=== PATIENT | male | born 1990 | race Caucasian/White ===

== ENCOUNTER 2022-03-20 10:47 | Emergency (ER) | payer OTHER, SELFPAY ==
[2022-03-20 11:06] VITALS: BP 134/88; PULSE 92; RESP 22; TEMP 36.6; O2SAT 100; BMI 24.3
--- NOTE | 2022-03-20 11:21 | ED_ITS ---
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 He was walking yesterday with his family and developed significant knee pain bilaterally also do developed wrist pain bilaterally and some elbow tenderness. He has had inability to really bear weight due to significant pain. He has had no history of gout. No history of reactions to medications in the past other than penicillin. Patient has no shortness of breath no breathing difficulty no tongue swelling or edema, no history of significant allergic reaction. No new medications or exposures other than the oral prednisone. He has noted stood noticed no redness or swelling of his knees wrists or elbows. Related Data Home Medications Medication Instructions Recorded Confirmed dextroamphetamine-amphetamine 15 15 mg PO DAILY 03/20/22 03/20/22 mg tablet dextroamphetamine-amphetamine ER 30 mg PO DAILY 03/20/22 03/20/22 30 mg 24hr capsule,extend release prednisolone acetate 1 % eye 1 drp ophthalmic (eye) 03/20/22 drops,suspension prednisone 10 mg tablet 80 mg PO DAILY 03/20/22 03/20/22 valacyclovir 1 gram tablet 1,000 mg PO TID 03/20/22 03/20/22 Allergies Allergy/AdvReac Type Severity Reaction Status Date / Time Penicillins Allergy Verified 03/20/22 11:10 Review of Systems Status of ROS: Reports: 10 or more systems reviewed and unremarkable except as noted in History and below Exam Narrative: Exam Narrative: Objective: Patient's vital signs are unremarkable He is in moderate discomfort due to disc pain in his knees wrists elbow but his knees the main component. HEENT unremarkable pulse regular abdomen benign soft lower extremities show bilateral knees are tender to palpation but there is no warmth erythema or swelling. Discomfort is diffuse No lower extremity swelling good peripheral CMS, neurologic appears nonfocal. No skin rashes noted. No swelling of his wrists or elbows Const: Vital Signs, click to edit/add: Vital Signs - 24 hr 03/20/22 11:06 Temperature 97.9 F Pulse Rate [Pulse Oximeter] 92 Respiratory Rate 22 Blood Pressure [Le ft Upper Arm] 134/88 Pulse Oximetry 100 Oxygen Delivery Me thod Room Air Course Vital Signs Vital signs: Initial Vital Signs Temperature 97.9 F 03/20/22 11:06 Temperature Source Temporal Artery Scan 03/20/22 11:06 Pulse Rate 92 03/20/22 11:06 Respiratory Rate 22 03/20/22 11:06 Blood Pressure 134/88 03/20/22 11:06 Blood Pressure Mean 103 03/20/22 11:06 Blood Pressure Position Sitting 03/20/22 11:06 Pulse Oximetry 100 03/20/22 11:06 Oxygen Delivery Method 03/20/22 11:06 Vital Signs Temperature 97.9 F 03/20/22 11:06 Pulse Rate 92 03/20/22 11:06 Respiratory Rate 22 03/20/22 11:06 Blood Pressure 134/88 03/20/22 11:06 Pulse Oximetry 100 03/20/22 11:06 Oxygen Delivery Method 03/20/22 11:06 Temperature 97.9 F 03/20/22 11:06 Pulse Rate 92 03/20/22 11:06 Respiratory Rate 22 03/20/22 11:06 Blood Pressure 134/88 03/20/22 11:06 Pulse Oximetry 100 03/20/22 11:06 Oxygen Delivery Method 03/20/22 11:06 Medical Decision Making MDM Narrative Medical decision making narrative: Patient has what appears to be almost a diffuse synovitis type issue. He would be unusual to have a serum sickness type illness with prednisone. He reports he has not been on new medication. Will discuss this further with him. At this point I think given his diff significant discomfort will give him IV fluid, IV Dilaudid, IV Toradol, check laboratory studies, disposition pending findings Patient feels markedly better after the Dilaudid and Ativan. And IV fluid. The am able to flex extend his knees, there is no synovitis, no inflammation, no redness or warmth or swelling of the knees. I think at this point given his labs look reassuring including a negative CRP neck CBC just shows a white count that is mildly elevated likely due to his chronic prednisone use for uveitis, I would recommend he use some Sodus continue the prednisone as prescribed , and crutch walking weight-bearing as tolerated. Recommend icing to the knees as well. Follow up with regular doctor next 2-3 days Lab Data Labs: Lab Results 03/20/22 03/20/22 03/20/22 Range/Units 11:30 11:30 11:30 WBC 12.54 H (4.50-11.00) K/uL RBC 4.63 (4.30-5.90) m/uL Hgb 15.3 (13.5-17.5) gm/dL Hct 44.2 (37.0-53.0) % MCV 96 (80-100) fL MCH 33 (26-34) pg MCHC 35 (32-36) gm/dL RDW Coeff of Carmella 13.6 (11.5-15.5) % Plt Count 290 (140-440) K/uL Neut % (Auto) 57.2 (42.0-72.0) % Lymph % (Auto) 26.5 (20-44) % [place] % (Auto) 7.9 (0.0-11.0) % Eos % (Auto) 1.1 (0.0-7.0) % Baso % (Auto) 0.1 (0.0-3.0) % Neut # (Auto) 7.20 H (1.7-7.0) K/uL Lymph # (Auto) 3.30 H (0.90-2.90) K/uL [place] # (Auto) 1.00 H (0.00-0.90) K/UL Eos # (Auto) 0.10 (0.00-0.50) K/uL Baso # (Auto) 0.00 (0.00-0.30) K/uL Diff Slide Review Acceptable Review (Acceptable) Sodium 136 (135-149) mmol/L Potassium 3.9 (3.6-5.1) mmol/L Chloride 100 (96-114) mmol/L Carbon Dioxide 28 (20-32) mmol/L BUN 22 (5-24) mg/dL Creatinine 0.8 (0.5-1.5) mg/dL Estimated Creat Clear 131.81 Estimated GFR 123 ml/min Glucose 85 (60-115) mg/dL Calcium 8.4 (8.4-10.6) mg/dL Total Bilirubin 0.5 (0.1-1.5) mg/dL Direct Bilirubin 0.3 (0.0-0.5) mg/dL AST 81 H (12-35) U/L ALT 72 H (4-50) U/L Alkaline Phosphatase 99 (40-150) U/L C-Reactive Protein < 0.5 L (0.5-1.0) mg/dL Total Protein 6.5 (6.0-8.3) g/dL Albumin 4.0 (3.3-5.0) g/dL SARS-CoV-2 (PCR) Negative SARS-CoV-2 (Negative) Influenza Type A (PCR) Negative PCR FLU A (Negative) Influenza Type B (PCR) Negative PCR FLU B (Negative) RSV (PCR) Negative PCR RSV (Negative) Discharge Plan Discharge Clinical Impression: Diffuse arthralgia Patient Disposition: Home w/ Parent or Adult Condition: Improved Additional Instructions: Light activity, crutch walking toe touching is acceptable as tolerated, icing to the knees as needed, continue some ibuprofen at home, will also prescribe some pain medication, he has been on prednisone for 3 weeks and needs to continue that, discussed with regular doctor in the next couple of days, unlikely the prednisone is related to this issue given that he has been on it for 3 weeks and taken it before. Will prescribe Sodus from the in steam add Activity Level: Use Crutches Discharge Diet: Regular Prescriptions: No Action dextroamphetamine-amphetamine 15 mg tablet 15 mg PO DAILY dextroamphetamine-amphetamine 30 mg capsule,extended release 24hr 30 mg PO DAILY prednisone 10 mg tablet 80 mg PO DAILY Label Comments: TAKE 8 TABLETS BY MOUTH DAILY valacyclovir 1 gram tablet 1,000 mg PO TID Label Comments: TAKE ONE TABLET BY MOUTH THREE TIMES DAILY prednisolone acetate 1 % drops,suspension 1 drp ophthalmic (eye) Label Comments: INSTILL ONE DROP TO RIGHT EYE SIX TIMES DAILY Stand Alone Forms: MyHealth Info Instructions
[2022-03-20] MEDS: HYDROmorphone 0.5 mg/0.5 ml inj IVP (11:43)
[2022-03-20] MEDS: 0.9 % SODIUM CHLORIDE 1000 ml 1,000 ML 6000 ML IV (11:43)
[2022-03-20] MEDS: KETOROLAC 30 MG/ML inj IVP (11:43)
[2022-03-20 11:54] LABS: Basophils Percent Auto 0.1 % (0.0-3.0); Eosinophils Percent Auto 1.1 % (0.0-7.0); Hematocrit 44.2 % (37.0-53.0); Hemoglobin* 15.3 gm/dL (13.5-17.5); Immature Granulocytes Pct Auto 7.2 %; Lymphocytes Percent Auto 26.5 % (20-44); Mean Corpuscular HGB Conc 35 gm/dL (32-36); Mean Corpuscular Hemoglobin 33 pg (26-34); Mean Corpuscular Volume 96 fL (80-100); Monocytes Percent Auto 7.9 % (0.0-11.0); Neutrophils Percent Auto 57.2 % (42.0-72.0); Platelet Count* 290 K/uL (140-440); RDW Coefficient of Variation % 13.6 % (11.5-15.5); Red Blood Count 4.63 m/uL (4.30-5.90); White Blood Count* 12.54 K/uL (4.50-11.00)
[2022-03-20 11:56] LABS: Slide Review Reflex Yes
[2022-03-20] MEDS: LORazepam 2 MG/ML inj 0.5 MG IVP (12:11)
[2022-03-20 12:26] LABS: Chloride* 100 mmol/L (96-114)
[2022-03-20 12:27] LABS: Potassium* 3.9 mmol/L (3.6-5.1); Sodium* 136 mmol/L (135-149)
[2022-03-20 12:29] LABS: Creatinine* 0.8 mg/dL (0.5-1.5); Est. Creatinine Clearance* 131.81; Estimated Glomerular Filt Rate 123 ml/min
[2022-03-20 12:30] LABS: Alanine Aminotransferase* 72 U/L (4-50); Alkaline Phosphatase* 99 U/L (40-150); Aspartate Amino Transferase* 81 U/L (12-35); Bilirubin Direct* 0.3 mg/dL (0.0-0.5); Bilirubin Total* 0.5 mg/dL (0.1-1.5); Blood Urea Nitrogen* 22 mg/dL (5-24); Calcium* 8.4 mg/dL (8.4-10.6); Carbon Dioxide* 28 mmol/L (20-32); Glucose* 85 mg/dL (60-115); PCR FLU A Negative PCR FLU A (Negative); PCR FLU B Negative PCR FLU B (Negative); PCR RSV Negative PCR RSV (Negative); Total Protein* 6.5 g/dL (6.0-8.3)
[2022-03-20 12:31] LABS: SARS PCR* Negative SARS-CoV-2 (Negative)
[2022-03-20 12:34] LABS: C Reactive Protein* < 0.5 mg/dL (0.5-1.0)
[2022-03-20 13:06] LABS: Slide Review Acceptable Review (Acceptable)
== END 2022-03-20 13:19 | disposition home or self-care (01) ==
PROVIDERS: Emergency Provider Family Medicine
DX: M25.562 Pain in left knee (principal); M25.561 Pain in right knee; R26.2 Difficulty in walking, not elsewhere classified
CPT/HCPCS: 36415; 80048; 80076; 85025; 86140; 87502; 87634; 87635; 96374; 96375; 99283; 99284; J1170; J1885; J2060; J7030